=== PATIENT | male | born 1955 | race Two or more races ===

== ENCOUNTER 2019-10-16 12:08 | Emergency (ER) | payer MEDICARE ==
[~2019-10-16] VITALS: Ht 185.4 cm; Wt 92.5 kg
[2019-10-16 12:51] LABS: BASO # 0.1 x10^3/uL (0.0-0.2); BASO % 1 % (0-3); EOS # 0.2 x10^3/uL (0.0-0.7); EOS % 2 % (0-3); HEMATOCRIT 35.4 % (39.0-53.0); HEMOGLOBIN 11.9 g/dL (13.0-17.5); LYMPH # 1.2 x10^3/uL (1.0-4.8); LYMPH % 15 % (24-48); MEAN CORPUSCULAR HEMOGLOBIN 30 pg (25-35); MEAN CORPUSCULAR HGB CONC 34 g/dL (31-37); MEAN CORPUSCULAR VOLUME 88 fL (79-100); MONO # 0.5 x10^3/uL (0.0-1.1); MONO % 6 % (0-9); NEUT # 6.1 x10^3/uL (1.8-7.7); NEUT % 76 % (31-73); PLATELET COUNT 164 x10^3/uL (140-400); RED BLOOD COUNT 4.02 x10^6/uL (4.30-5.70); RED CELL DISTRIBUTION WIDTH 14.5 % (11.5-14.5)
[2019-10-16 12:55] LABS: BILIRUBIN,URINE NEGATIVE (NEG); COLOR,URINE YELLOW; NITRITE,URINE NEGATIVE (NEG); PROTEIN,URINE >=300 mg/dL (NEG-TRACE); UROBILINOGEN,URINE 0.2 mg/dL (0.2 mg/dL)
[2019-10-16 13:01] LABS: CLARITY,URINE CLEAR
[2019-10-16 13:02] LABS: SQUAMOUS EPITHELIAL CELL,UR FEW /LPF
[2019-10-16 13:03] LABS: BACTERIA,URINE FEW /HPF (0-FEW); GRANULAR CASTS,URINE OCCASIONAL /HPF; HYALINE CASTS, URINE FEW /HPF
--- NOTE | 2019-10-16 13:03 | RAD ---
EXAM: CHEST 1 VIEW History: Syncope COMPARISON: None available. TECHNIQUE: Single portable radiograph of the chest FINDINGS: The cardiac silhouette is unremarkable. The lungs are clear bilaterally. The costophrenic sulci are clear and well demarcated. IMPRESSION: No radiographic evidence of an acute cardiopulmonary process. Electronically signed by: Evangelista Toney MD (10/16/2019 1:00 PM) [facility]
[2019-10-16 13:07] LABS: CALCIUM 8.4 mg/dL (8.5-10.1); GFR 21.3; POTASSIUM 3.7 mmol/L (3.5-5.1)
--- NOTE | 2019-10-16 13:10 | RAD ---
EXAM: Head CT without contrast. HISTORY: Syncope. TECHNIQUE: Computed tomographic images of the head were obtained without contrast. *One or more of the following individualized dose reduction techniques were utilized for this examination: 1. Automated exposure control. 2. Adjustment of the mA and/or kV according to patient size. 3. Use of iterative reconstruction technique. COMPARISON: None. FINDINGS: There is no acute or subacute extra-axial or intraparenchymal hemorrhage. There is no mass effect or midline shift. There is no hydrocephalus. There are areas of decreased attenuation within the cerebral white matter, nonspecific and likely related to chronic small vessel disease. The visualized portions of the orbits, paranasal sinuses and mastoid air cells are unremarkable. No suspicious calvarial lesion is seen. There is increased soft tissue density within the right parietal scalp, possibly due to scarring or contusion. IMPRESSION: No acute intracranial finding. Note is made that MRI is more sensitive for acute infarction. There may be a small left parietal scalp contusion or scarring. Correlate for recent injury. Electronically signed by: Tami Christensen MD (10/16/2019 1:07 PM) [facility]
[2019-10-16 13:12] LABS: ALBUMIN 2.7 g/dL (3.4-5.0); ALBUMIN/GLOBULIN RATIO 0.8 (1.0-1.7); MAGNESIUM 1.9 mg/dL (1.8-2.4); TOTAL BILIRUBIN 0.7 mg/dL (0.2-1.0); TOTAL PROTEIN 6.3 g/dL (6.4-8.2)
--- NOTE | 2019-10-16 14:39 | PHYS DOC ---
Past Medical History Past Medical History: Diabetes-Type II, Hypertension, [place], Other Additional Past Medical Histor: CHRONIC BACK PAIN Alcohol Use: None Drug Use: None Adult General Chief Complaint Chief Complaint: NEAR SYNCOPE [facility] HPI Patient is a 64 year old male patient with history of hypertension, diabetes mellitus, coronary artery disease, renal insufficiency, chronic back pain who presents via EMS with complaining of near syncope. Patient states he was sitting at lunch table and felt cold and had hot flash and does not remember anything after that. Patient's son states he was sitting and had extensive cold sweat and became confused without loss of consciousness last about 45-60 minutes. Patient's son fed him and called 911. Patient became more awake at arrival of EMS and had blood sugar of 71. Patient is alert and oriented to ER and had blood sugar of 85 and complaining of mild weakness without focal neuro deficit, chest pain, shortness of breath, history of syncope. Review of Systems Review of Systems Constitutional: Denies fever or chills [] Eyes: Denies change in visual acuity, redness, or eye pain [] HENT: Denies nasal congestion or sore throat [] Respiratory: Denies cough or shortness of breath [] Cardiovascular: No additional information not addressed in HPI [] GI: Denies abdominal pain, nausea, vomiting, bloody stools or diarrhea [] : Denies dysuria or hematuria [] Musculoskeletal: Denies back pain or joint pain [] Integument: Denies rash or skin lesions [] Neurologic: Denies headache, focal weakness or sensory changes [] Endocrine: Denies polyuria or polydipsia [] All other systems were reviewed and found to be within normal limits, except as documented in this note. Allergies Allergies Allergies Coded Allergies Type Severity Reaction Last Updated Verified No Known Drug Allergies 10/16/19 No Physical Exam Physical Exam Constitutional: Well developed, well nourished, mild distress, non-toxic appearance. [] HENT: Normocephalic, atraumatic. Eyes: PERRLA, EOMI, conjunctiva normal, no discharge. [] Neck: Normal range of motion, no tenderness, supple, no stridor. [] Cardiovascular:Heart rate regular rhythm, no murmur [] Lungs & Thorax: Bilateral breath sounds clear to auscultation [] Abdomen: Bowel sounds normal, soft, no tenderness, no masses, no pulsatile masses. [] Skin: Warm, dry, no erythema, no rash. [] Back: No tenderness, no CVA tenderness. [] Extremities: No tenderness, no cyanosis, no clubbing, ROM intact, no edema. [] Neurologic: Alert and oriented X 3, no focal deficits noted. [] Psychologic: Affect normal, judgement normal, mood normal. [] Current Patient Data Vital Signs Vital Signs Date Time Temp Pulse Resp B/P (MAP) Pulse Ox O2 Delivery O2 Flow Rate FiO2 10/16/19 12:15 97.3 54 20 135/62 (86) Room Air 97.0 97.3 Lab Values Laboratory Tests Test 10/16/19 12:20 10/16/19 12:45 10/16/19 12:48 Glucose (Fingerstick) 85 mg/dL (70-99) Urine Collection Type Unknown Urine Color Yellow Urine Clarity Clear Urine pH 5.0 Urine Specific [place] 1.020 Urine Protein >=300 mg/dL (NEG-TRACE) Urine Glucose (UA) 100 mg/dL (NEG) Urine Ketones (Stick) Negative mg/dL (NEG) Urine Blood Small (NEG) Urine Nitrite Negative (NEG) Urine Bilirubin Negative (NEG) Urine Urobilinogen Dipstick 0.2 mg/dL (0.2 mg/dL) Urine Leukocyte Esterase Negative (NEG) Urine RBC 1-2 /HPF (0-2) Urine WBC 1-4 /HPF (0-4) Urine Squamous Epithelial Cells Few /LPF Urine Bacteria Few /HPF (0-FEW) Urine Hyaline Casts Few /HPF Urine Granular Casts Occasional /HPF Urine Mucus Slight /LPF White Blood Count 8.0 x10^3/uL (4.0-11.0) Red Blood Count 4.02 x10^6/uL (4.30-5.70) L Hemoglobin 11.9 g/dL (13.0-17.5) L Hematocrit 35.4 % (39.0-53.0) L Mean Corpuscular Volume 88 fL (79-100) Mean Corpuscular Hemoglobin 30 pg (25-35) Mean Corpuscular Hemoglobin Concent 34 g/dL (31-37) Red Cell Distribution Width 14.5 % (11.5-14.5) Platelet Count 164 x10^3/uL (140-400) Neutrophils (%) (Auto) 76 % (31-73) H Lymphocytes (%) (Auto) 15 % (24-48) L Monocytes (%) (Auto) 6 % (0-9) Eosinophils (%) (Auto) 2 % (0-3) Basophils (%) (Auto) 1 % (0-3) Neutrophils # (Auto) 6.1 x10^3/uL (1.8-7.7) Lymphocytes # (Auto) 1.2 x10^3/uL (1.0-4.8) Monocytes # (Auto) 0.5 x10^3/uL (0.0-1.1) Eosinophils # (Auto) 0.2 x10^3/uL (0.0-0.7) Basophils # (Auto) 0.1 x10^3/uL (0.0-0.2) Prothrombin Time 14.0 SEC (11.7-14.0) Prothrombin Time INR 1.1 (0.8-1.1) Sodium Level 141 mmol/L (136-145) Potassium Level 3.7 mmol/L (3.5-5.1) Chloride Level 107 mmol/L (98-107) Carbon Dioxide Level 25 mmol/L (21-32) Anion Gap 9 (6-14) Blood Urea Nitrogen 31 mg/dL (8-26) H Creatinine 3.0 mg/dL (0.7-1.3) H Estimated GFR (Cockcroft-Gault) 21.3 BUN/Creatinine Ratio 10 (6-20) Glucose Level 110 mg/dL (70-99) H Calcium Level 8.4 mg/dL (8.5-10.1) L Magnesium Level 1.9 mg/dL (1.8-2.4) Total Bilirubin 0.7 mg/dL (0.2-1.0) Aspartate Amino Transferase (AST) 14 U/L (15-37) L Alanine Aminotransferase (ALT) 14 U/L (16-63) L Alkaline Phosphatase 143 U/L (46-116) H Creatine Kinase 129 U/L (39-308) Troponin I Quantitative < 0.017 ng/mL (0.000-0.055) XG-Rnv-T-Type Natriuretic Peptide 1008 pg/mL (0-124) H Total Protein 6.3 g/dL (6.4-8.2) L Albumin 2.7 g/dL (3.4-5.0) L Albumin/Globulin Ratio 0.8 (1.0-1.7) L Laboratory Tests 10/16/19 12:48 Laboratory Tests 10/16/19 12:48 EKG EKG EKG interpreted by me. EKG at 12:30 showed sinus bradycardia at rate of 52, normal AL and QT intervals, no acute ST and T-wave elevation. Radiology/Procedures Radiology/Procedures [][place] [address] IMAGING REPORT Signed PATIENT: LITA HATCH ACCOUNT: [id number] : 1955 LOCATION: ER AGE: 64 SEX: M EXAM STATUS: PRE ER ORD. PHYSICIAN: THOM ROMERO MD REASON: syncope PROCEDURE: PORTABLE CHEST 1V EXAM: CHEST 1 VIEW History: Syncope COMPARISON: None available. TECHNIQUE: Single portable radiograph of the chest FINDINGS: The cardiac silhouette is unremarkable. The lungs are clear bilaterally. The costophrenic sulci are clear and well demarcated. IMPRESSION: No radiographic evidence of an acute cardiopulmonary process. Electronically signed by: Evangelista Tonye MD (10/16/2019 1:00 PM) [facility] DICTATED and SIGNED BY: EVANGELISTA TONEY MD DATE: 10/16/[address] [place] [id number] IMAGING REPORT Signed PATIENT: LITA HATCH ACCOUNT: [id number] : 1955 LOCATION: ER AGE: 64 SEX: M EXAM STATUS: PRE ER ORD. PHYSICIAN: THOM ROMERO MD REASON: syncope PROCEDURE: CT HEAD WO CONTRAST EXAM: Head CT without contrast. HISTORY: Syncope. TECHNIQUE: Computed tomographic images of the head were obtained without contrast. *One or more of the following individualized dose reduction techniques were utilized for this examination: 1. Automated exposure control. 2. Adjustment of the mA and/or kV according to patient size. 3. Use of iterative reconstruction technique. COMPARISON: None. FINDINGS: There is no acute or subacute extra-axial or intraparenchymal hemorrhage. There is no mass effect or midline shift. There is no hydrocephalus. There are areas of decreased attenuation within the cerebral white matter, nonspecific and likely related to chronic small vessel disease. The visualized portions of the orbits, paranasal sinuses and mastoid air cells are unremarkable. No suspicious calvarial lesion is seen. There is increased soft tissue density within the right parietal scalp, possibly due to scarring or contusion. IMPRESSION: No acute intracranial finding. Note is made that MRI is more sensitive for acute infarction. There may be a small left parietal scalp contusion or scarring. Correlate for recent injury. Electronically signed by: Tami Banks MD (10/16/2019 1:07 PM) [facility] DICTATED and SIGNED BY: TAMI BANKS MD DATE: 10/16/19 2587 Course & Med Decision Making Course & Med Decision Making Pertinent Labs and Imaging studies reviewed. (See chart for details) Evaluation of patient in ER showed 64-year-old male patient with history of diabetes mellitus brought in by EMS with near syncope episode. Patient was alert and oriented in ER. According to patient's son story, mostly he had episodes of hypoglycemia that improved with oral intake. Patient had blood sugar of 85 and 110 whyle he was in ER. Patient had elevation of BUN/creatinine without having previous blood testing here to compare. Patient states he has chronic renal insufficiency. I offered hospitalization but patient wanted to go home and follow with his primary care physician. Patient was advised to return at any time if not feeling good and checked his blood sugar frequently today. Dragon Disclaimer Dragon Disclaimer This electronic medical record was generated, in whole or in part, using a voice recognition dictation system. Departure Departure Impression: Primary Impression: Near syncope Additional Impressions: Renal insufficiency Anemia Hypoalbuminemia Noncompliance by refusing service Disposition: 07 AGAINST MEDICAL ADVICE (at 1439) Condition: IMPROVED Referrals: NON,STAFF (PCP) Patient Instructions: Hypoglycemia (Low Blood Sugar), Syncope Additional Instructions: Drink plenty of liquids Follow-up with your primary care physician in 2-3 days Return to ER if not getting better Check your blood sugar frequently today Thank you for visiting [facility]. We appreciate you trusting us with your care. If any additional problems come up don't hesitate to return to visit us. Please follow up with your primary care provider so they can plan additional care if needed and know about the problem that you had. If symptoms worsen come back to the Emergency Department. Any concerning symptoms that start such as chest pain, shortness of air, weakness or numbness on one side of the body, running high fevers or any other concerning symptoms return to the ER. Problem Qualifiers Additional Impressions: Anemia Anemia type: unspecified type Qualified Codes: D64.9 - Anemia, unspecified THOM ROMERO MD Oct 16, 2019 14:39
[2019-10-16 15:15] VITALS: BP 131/60
--- NOTE | 2019-10-16 16:25 | EKG ---
[facility] [address] [place] [address] Test Date: 2019-10-16 Test Time: 12:13:50 Pat Name: LITA HATCH Department: Room: Gender: M Outside Salesperson: : 1955 Requested By: THOM ROMERO Order Number: [id number] Reading MD: Measurements Intervals [place] Rate: 52 P: 32 MT: 184 QRS: 44 QRSD: 110 T: -6 QT: 488 QTc: 456 Interpretive Statements SINUS RHYTHM QRS(T) CONTOUR ABNORMALITY CONSISTENT WITH INFERIOR INFARCT PROBABLY OLD ABNORMAL ECG RI6.01 No previous ECG available for comparison
== END 2019-10-16 15:19 | disposition left against medical advice (07) ==
LOC: ER 12:08
DX: R55 Syncope and collapse (principal); D64.9 Anemia, unspecified; E88.09 Other disorders of plasma-protein metabolism, not elsewhere classified; Z91.19 Patient's noncompliance with other medical treatment and regimen; I12.9 Hypertensive chronic kidney disease with stage 1 through stage 4 chronic kidney disease, or unspecified chronic kidney disease; E11.22 Type 2 diabetes mellitus with diabetic chronic kidney disease; N18.9 Chronic kidney disease, unspecified; G89.29 Other chronic pain
CPT/HCPCS: 36415; 70450; 71045; 80053; 81001; 82550; 82962; 83735; 83880; 84484; 85025; 85610; 93005; 99285-25

== ENCOUNTER 2021-06-20 21:40 | Inpatient (IN) | payer MEDICARE ==
[~2021-06-20] VITALS: Ht 185.4 cm; Wt 83.1 kg
[~2021-06-20 21:40] MED LIST: AMLO-186 PO; AMLO-187 PO; ASPI-886 PO; CALC0.25 PO; CLOP75TA PO; FAMO40TA57 PO; FURO80TA72 PO; GABA600T7 PO; INSU100C4 SQ; INSU100V37 SQ; LIPITOR80 MG PO; LISI10TA16 PO; METO50TA4 PO; OXYC5CAP PO; PRED20TA PO
--- NOTE | 2021-06-21 05:52 | ED.ADGEN ---
Past Medical History Past Medical History: Diabetes-Type II, Hypertension, PA, Renal Failure, Other Additional Past Medical Histor: CHRONIC BACK PAIN, PVD with stents, bladder CA Past Surgical History: Other Additional Past Surgical Histo: PVD stents, RLE amputation, L toe amputation Smoking Status: Current Every Day Smoker Alcohol Use: None Drug Use: None General Adult EDM: Chief Complaint: OTHER COMPLAINTS HPI: HPI: Patient is a 66 year old male coming in via EMS after his right-sided tunneled dialysis catheter came out while he was doing dishes. Had bleeding at the time because he takes Plavix, bleeding controlled on arrival with a bandage placed by EMS. No other complaints. Patient states he gets dialysis Monday and has had this dialysis catheter for about 2.5 months. Patient has a plan to get a fistula within the next month. Patient states that it was sutured in but his home health nurse recently remove the sutures that he is unsure why. Review of Systems: Review of Systems: All other systems within normal limits except for as noted in the HPI Allergies: Allergies: Allergies Coded Allergies Type Severity Reaction Last Updated Verified No Known Drug Allergies 10/16/19 No Physical Exam: PE: Constitutional: Well developed, well nourished, no acute distress, non-toxic appearance. [] HENT: Normocephalic, atraumatic, bilateral external ears normal, nose normal. [] Eyes: PERRLA, conjunctiva normal, no discharge. [] Neck: No rigidity, supple, no stridor. [] Cardiovascular: Regular rate and rhythm, brisk cap refill [] Lungs & Thorax: Non labored symmetric respirations, no tachypnea or respiratory distress [] Abdomen: Soft, nondistended. Skin: Warm, dry, no erythema, no rash. Round wound on right chest, no active bleeding or oozing. [] Back: Unremarkable Extremities: No deformities, range of motion grossly intact, no lower extremity edema [] Neurologic: Alert and oriented X 3, no focal deficits noted. [] Psychologic: Affect normal, judgement normal, mood normal. [] Constitutional: Well developed, well nourished, no acute distress, non-toxic appearance HENT: Normocephalic, atraumatic Eyes: Conjunctiva normal, no discharge Neck: Normal range of motion, no tenderness, supple Lungs & Thorax: No respiratory distress, equal chest rise and fall, right chest wall dressing noted covering area of extracted HD catheter Abdomen: Soft, no tenderness Skin: Warm, dry, no erythema, no rash Extremities: No tenderness, ROM intact, no edema Neurologic: Alert and oriented X 3, no focal deficits noted Psychologic: Affect normal, judgment normal Current Patient Data: Labs: Laboratory Tests Test 06/21/21 07:20 White Blood Count 6.6 x10^3/uL (4.0-11.0) Red Blood Count 3.55 x10^6/uL (4.30-5.70) L Hemoglobin 11.6 g/dL (13.0-17.5) L Hematocrit 34.8 % (39.0-53.0) L Mean Corpuscular Volume 98 fL (79-100) Mean Corpuscular Hemoglobin 33 pg (25-35) Mean Corpuscular Hemoglobin Concent 33 g/dL (31-37) Red Cell Distribution Width 15.3 % (11.5-14.5) H Platelet Count 219 x10^3/uL (140-400) Neutrophils (%) (Auto) 73 % (31-73) Lymphocytes (%) (Auto) 16 % (24-48) L Monocytes (%) (Auto) 8 % (0-9) Eosinophils (%) (Auto) 3 % (0-3) Basophils (%) (Auto) 1 % (0-3) Neutrophils # (Auto) 4.8 x10^3/uL (1.8-7.7) Lymphocytes # (Auto) 1.0 x10^3/uL (1.0-4.8) Monocytes # (Auto) 0.5 x10^3/uL (0.0-1.1) Eosinophils # (Auto) 0.2 x10^3/uL (0.0-0.7) Basophils # (Auto) 0.1 x10^3/uL (0.0-0.2) Prothrombin Time 13.5 SEC (11.7-14.0) Prothrombin Time INR 1.0 (0.8-1.1) Sodium Level 142 mmol/L (136-145) Potassium Level 4.7 mmol/L (3.5-5.1) Chloride Level 109 mmol/L (98-107) H Carbon Dioxide Level 22 mmol/L (21-32) Anion Gap 11 (6-14) Blood Urea Nitrogen 27 mg/dL (8-26) H Creatinine 5.8 mg/dL (0.7-1.3) H Estimated GFR (Cockcroft-Gault) 9.9 BUN/Creatinine Ratio 5 (6-20) L Glucose Level 144 mg/dL (70-99) H Calcium Level 8.4 mg/dL (8.5-10.1) L Phosphorus Level 4.1 mg/dL (2.6-4.7) Magnesium Level 2.1 mg/dL (1.8-2.4) Total Bilirubin 0.5 mg/dL (0.2-1.0) Aspartate Amino Transferase (AST) 11 U/L (15-37) L Alanine Aminotransferase (ALT) 17 U/L (16-63) Alkaline Phosphatase 124 U/L (46-116) H VP-Hqg-K-Type Natriuretic Peptide 56400 pg/mL (0-124) H Total Protein 6.2 g/dL (6.4-8.2) L Albumin 3.2 g/dL (3.4-5.0) L Albumin/Globulin Ratio 1.1 (1.0-1.7) Laboratory Tests 06/21/21 07:20 Laboratory Tests 06/21/21 07:20 Vital Signs: Vital Signs Date Time Temp Pulse Resp B/P (MAP) Pulse Ox O2 Delivery O2 Flow Rate FiO2 06/21/21 08:21 59 100 06/21/21 05:24 15 166/76 (106) Room Air 06/21/21 03:27 98.0 98.0 EKG: EKG: Sinus rhythm, heart rate 69 bpm, normal axis, no ST elevation or depression, T waves unremarkable [] Heart Score: C/O Chest Pain: N/A Radiology/Procedures: Radiology/Procedures: PROCEDURE: CHEST AP ONLY EXAM: XR CHEST 1V 06/21/2021 5:20 AM CLINICAL INDICATION: Postop dialysis catheter COMPARISON: Chest radiograph 04/01/2021 TECHNIQUE: AP upright view of the chest FINDINGS: A right IJ central venous catheter has been removed. The cardiomediastinal silhouette is normal. Lungs are adequately expanded. Probable mild atelectasis in the lung bases. No pleural effusion or pneumothorax. IMPRESSION: Interval removal of right IJ catheter. No acute abnormality. Electronically signed by: Geri Tucker MD (06/21/2021 6:08 AM) [id number] Course & Med Decision Making: Course & Med Decision Making Pertinent Labs and Imaging studies reviewed. (See chart for details) Pending labs and imaging at shift change 0600- Sign out received from Dr. Gross for patient with accidental extraction of HD catheter. Patient pending laboratory and radiological results. Patient seen and evaluated by myself. CXR stable. Labs reviewed. Patient requiring admission for further evaluation and treatment including replacement of HD catheter and dialysis. Discussed with Dr. Witt (hospitalist) who is in agreement with admission. Discussed case with Dr. Conti (interventional radiology) regarding replacement of HD catheter. Discussed case with Dr. Pierre (nephrology) regarding need for HD upon catheter replacement. Discussed findings and plan with patient, who acknowledges understanding and agreement. Dragon Disclaimer: Dragon Disclaimer: This electronic medical record was generated, in whole or in part, using a voice recognition dictation system. Departure Departure Impression: Primary Impression: Complications, dialysis, catheter, mechanical Additional Impression: ESRD (end stage renal disease) on dialysis Disposition: 09 ADMITTED INPATIENT Admitting Physician: ELEUTERIO Paul) Condition: STABLE Referrals: NO PCP (PCP) Problem Qualifiers Primary Impression: Complications, dialysis, catheter, mechanical Encounter type: initial encounter Qualified Codes: T82.49XA - Other complication of vascular dialysis catheter, initial encounter GERI GROSS MD Jun 21, 2021 05:52 PIETRO MAC DO Jun 21, 2021 08:49
--- NOTE | 2021-06-21 06:11 | RAD ---
EXAM: XR CHEST 1V 06/21/2021 5:20 AM CLINICAL INDICATION: Postop dialysis catheter COMPARISON: Chest radiograph 04/01/2021 TECHNIQUE: AP upright view of the chest FINDINGS: A right IJ central venous catheter has been removed. The cardiomediastinal silhouette is n ormal. Lungs are adequately expanded. Probable mild atelectasis in the lung bases. No pleural effusio n or pneumothorax. IMPRESSION: Interval removal of right IJ catheter. No acute abnormality. Electronically signed by: Geri Tucker MD (06/21/2021 6:08 AM) [id number]
--- NOTE | 2021-06-21 06:47 | EKG ---
[facility] [address] [place] [address] Test Date: 2021-06-21 Test Time: 05:29:05 Pat Name: LITA HATCH Department: Room: Gender: M Order Entry Specialist: : 1955 Requested By: KAROLINA GROSS Order Number: [id number] Reading MD: Measurements Intervals [place] Rate: 69 P: 49 [place]: 160 QRS: 67 QRSD: 108 T: 94 QT: 396 QTc: 426 Interpretive Statements SINUS RHYTHM QRS(T) CONTOUR ABNORMALITY CONSIDER ANTEROSEPTAL MYOCARDIAL DAMAGE CONSIDER INFERIOR MYOCARDIAL DAMAGE POSSIBLY ABNORMAL ECG RI6.02 No previous ECG available for comparison
[2021-06-21 07:51] LABS: BASO # 0.1 x10^3/uL (0.0-0.2); BASO % 1 % (0-3); EOS # 0.2 x10^3/uL (0.0-0.7); EOS % 3 % (0-3); HEMATOCRIT 34.8 % (39.0-53.0); HEMOGLOBIN 11.6 g/dL (13.0-17.5); LYMPH % 16 % (24-48); MEAN CORPUSCULAR HEMOGLOBIN 33 pg (25-35); MEAN CORPUSCULAR HGB CONC 33 g/dL (31-37); MEAN CORPUSCULAR VOLUME 98 fL (79-100); MONO # 0.5 x10^3/uL (0.0-1.1); MONO % 8 % (0-9); NEUT # 4.8 x10^3/uL (1.8-7.7); NEUT % 73 % (31-73); PLATELET COUNT 219 x10^3/uL (140-400); RED BLOOD COUNT 3.55 x10^6/uL (4.30-5.70); RED CELL DISTRIBUTION WIDTH 15.3 % (11.5-14.5); WHITE BLOOD COUNT 6.6 x10^3/uL (4.0-11.0)
[2021-06-21 07:55] LABS: CALCIUM 8.4 mg/dL (8.5-10.1); CREATININE 5.8 mg/dL (0.7-1.3); GFR 9.9; POTASSIUM 4.7 mmol/L (3.5-5.1)
[2021-06-21 08:00] LABS: PROTHROMBIN TIME PATIENT 13.5 SEC (11.7-14.0)
[2021-06-21 08:07] LABS: ALBUMIN 3.2 g/dL (3.4-5.0); ALBUMIN/GLOBULIN RATIO 1.1 (1.0-1.7); MAGNESIUM 2.1 mg/dL (1.8-2.4); PHOSPHORUS 4.1 mg/dL (2.6-4.7); TOTAL BILIRUBIN 0.5 mg/dL (0.2-1.0); TOTAL PROTEIN 6.2 g/dL (6.4-8.2)
--- NOTE | 2021-06-21 11:19 | PDOC1 ---
History and Physical Date of Admission Date of Admission DATE: 06/21/21 TIME: 11:11 Identification/Chief Complaint Chief Complaint Right tunneled dialysis catheter dislodgment Source Source: Chart review, Patient History of Present Illness History of Present Illness Patient 66-year-old male with past medical history ESRD on HD Monday/Monday/Monday, who presents to the ED for evaluation after his right- sided hemodialysis catheter became dislodged while he was doing dishes at home. He reports some initial bleeding that has since ceased. Patient states he had his dialysis catheter for about 2.5 months, with plans to get a fistula within the next month. ER attending discussed with IR, HD catheter will likely be able to be replaced this afternoon. Will admit for further medical management. Past Medical History Past Medical History DM2, hypertension, [place], chronic back pain, PVD, bladder cancer Past Surgical History Past Surgical History Vascular stents, right lower extremity amputation, left toe amputation Family History Family History: Hypertension Social History Smoke: 1 pack per day ALCOHOL: none Drugs: None Current Problem List Problem List Problems Medical Problems: (1) Complications, dialysis, catheter, mechanical Status: Acute (2) ESRD (end stage renal disease) on dialysis Status: Acute Current Medications Current Medications Active Scripts Active Clopidogrel (Clopidogrel Bisulfate) 75 Mg Tablet 75 Mg PO DAILYWBKFT 30 Days Prednisone 20 Mg Tablet 40 Mg PO DAILY 5 Days Aspirin Ec (Aspirin) 81 Mg Tablet.dr 81 Mg PO DAILYWBKFT 30 Days Lisinopril 10 Mg Tablet 10 Mg PO DAILY 30 Days Toprol XL (Metoprolol Succinate) 50 Mg Tab.er.24h 50 Mg PO DAILY 30 Days Amlodipine Besylate 10 Mg Tablet 10 Mg PO DAILY 30 Days Reported Calcitriol 0.25 Mcg Capsule 1 Cap PO DAILY Lipitor (Atorvastatin Calcium) 80 Mg Tablet 80 Mg PO HS Gabapentin 600 Mg Tablet 300 Mg PO TID Pepcid (Famotidine) 40 Mg Tablet 40 Mg PO HS Tresiba (Insulin Degludec) 100 Unit/1 Ml Vial 40 Unit SQ HS Novolog (Insulin Aspart) 100 Unit/1 Ml Cartridge 10 Unit SQ TIDWMEALHC Oxycodone Hcl 5 Mg Capsule 10 Mg PO PRN Q6HRS PRN Oxycodone Hcl 5 Mg Capsule 5 Mg PO PRN Q6HRS PRN Allergies Allergies: Coded Allergies: No Known Drug Allergies (Unverified , 10/16/19) ROS Review of System GENERAL: No history of weight change, weakness or fevers. SKIN: No bruising, hair changes or rashes. EYES: No blurred, double or loss of vision. NOSE AND THROAT: No history of nosebleeds, hoarseness or sore throat. HEART: Denies chest pain, denies palpitations. LUNGS: Denies cough, hemoptysis, wheezing or shortness of breath. GASTROINTESTINAL: Denies nausea, vomiting, abdominal pain. GENITOURINARY: Denies dysuria, frequency, urgency, hematuria. NEUROLOGIC: Denies history of numbness, tingling, tremor or weakness. PSYCHIATRIC: Denies anxiety, denies depression. ENDOCRINE: No history of heat or cold intolerance, polyuria or polydipsia. EXTREMITIES: Right hemodialysis catheter dislodgment. Denies muscle weakness, joint pain, pain on walking or stiffness. Physical Exam Physical Exam General: Alert, Oriented X3, Cooperative, No acute distress HEENT: PERRLA, EOMI Lungs: Bibasilar crackles, normal air movement Heart: RRR, no murmurs Cardiovascular: S1, S2 Abdomen: Normal bowel sounds, Soft, No tenderness Extremities: Right AKA. No clubbing, No cyanosis Skin: No rashes, No significant lesion Neuro: Normal speech, Normal tone, Sensation intact Psych/Mental Status: Mental status NL, Mood NL Vitals Vitals Vital Signs Date Time Temp Pulse Resp B/P (MAP) Pulse Ox O2 Delivery O2 Flow Rate FiO2 06/21/21 11:05 72 166/76 (106) 99 06/21/21 05:24 15 Room Air 06/21/21 03:27 98.0 98.0 Labs Labs Laboratory Tests Test 06/21/21 07:20 White Blood Count 6.6 x10^3/uL (4.0-11.0) Red Blood Count 3.55 x10^6/uL (4.30-5.70) Hemoglobin 11.6 g/dL (13.0-17.5) Hematocrit 34.8 % (39.0-53.0) Mean Corpuscular Volume 98 fL (79-100) Mean Corpuscular Hemoglobin 33 pg (25-35) Mean Corpuscular Hemoglobin Concent 33 g/dL (31-37) Red Cell Distribution Width 15.3 % (11.5-14.5) Platelet Count 219 x10^3/uL (140-400) Neutrophils (%) (Auto) 73 % (31-73) Lymphocytes (%) (Auto) 16 % (24-48) Monocytes (%) (Auto) 8 % (0-9) Eosinophils (%) (Auto) 3 % (0-3) Basophils (%) (Auto) 1 % (0-3) Neutrophils # (Auto) 4.8 x10^3/uL (1.8-7.7) Lymphocytes # (Auto) 1.0 x10^3/uL (1.0-4.8) Monocytes # (Auto) 0.5 x10^3/uL (0.0-1.1) Eosinophils # (Auto) 0.2 x10^3/uL (0.0-0.7) Basophils # (Auto) 0.1 x10^3/uL (0.0-0.2) Prothrombin Time 13.5 SEC (11.7-14.0) Prothromb Time International Ratio 1.0 (0.8-1.1) Sodium Level 142 mmol/L (136-145) Potassium Level 4.7 mmol/L (3.5-5.1) Chloride Level 109 mmol/L (98-107) Carbon Dioxide Level 22 mmol/L (21-32) Anion Gap 11 (6-14) Blood Urea Nitrogen 27 mg/dL (8-26) Creatinine 5.8 mg/dL (0.7-1.3) Estimated GFR (Cockcroft-Gault) 9.9 BUN/Creatinine Ratio 5 (6-20) Glucose Level 144 mg/dL (70-99) Calcium Level 8.4 mg/dL (8.5-10.1) Phosphorus Level 4.1 mg/dL (2.6-4.7) Magnesium Level 2.1 mg/dL (1.8-2.4) Total Bilirubin 0.5 mg/dL (0.2-1.0) Aspartate Amino Transf (AST/SGOT) 11 U/L (15-37) Alanine Aminotransferase (ALT/SGPT) 17 U/L (16-63) Alkaline Phosphatase 124 U/L (46-116) NF-Xtx-S-Type Natriuretic Peptide 65805 pg/mL (0-124) Total Protein 6.2 g/dL (6.4-8.2) Albumin 3.2 g/dL (3.4-5.0) Albumin/Globulin Ratio 1.1 (1.0-1.7) Laboratory Tests Test 06/21/21 07:20 White Blood Count 6.6 x10^3/uL (4.0-11.0) Red Blood Count 3.55 x10^6/uL (4.30-5.70) Hemoglobin 11.6 g/dL (13.0-17.5) Hematocrit 34.8 % (39.0-53.0) Mean Corpuscular Volume 98 fL (79-100) Mean Corpuscular Hemoglobin 33 pg (25-35) Mean Corpuscular Hemoglobin Concent 33 g/dL (31-37) Red Cell Distribution Width 15.3 % (11.5-14.5) Platelet Count 219 x10^3/uL (140-400) Neutrophils (%) (Auto) 73 % (31-73) Lymphocytes (%) (Auto) 16 % (24-48) Monocytes (%) (Auto) 8 % (0-9) Eosinophils (%) (Auto) 3 % (0-3) Basophils (%) (Auto) 1 % (0-3) Neutrophils # (Auto) 4.8 x10^3/uL (1.8-7.7) Lymphocytes # (Auto) 1.0 x10^3/uL (1.0-4.8) Monocytes # (Auto) 0.5 x10^3/uL (0.0-1.1) Eosinophils # (Auto) 0.2 x10^3/uL (0.0-0.7) Basophils # (Auto) 0.1 x10^3/uL (0.0-0.2) Prothrombin Time 13.5 SEC (11.7-14.0) Prothromb Time International Ratio 1.0 (0.8-1.1) Sodium Level 142 mmol/L (136-145) Potassium Level 4.7 mmol/L (3.5-5.1) Chloride Level 109 mmol/L (98-107) Carbon Dioxide Level 22 mmol/L (21-32) Anion Gap 11 (6-14) Blood Urea Nitrogen 27 mg/dL (8-26) Creatinine 5.8 mg/dL (0.7-1.3) Estimated GFR (Cockcroft-Gault) 9.9 BUN/Creatinine Ratio 5 (6-20) Glucose Level 144 mg/dL (70-99) Calcium Level 8.4 mg/dL (8.5-10.1) Phosphorus Level 4.1 mg/dL (2.6-4.7) Magnesium Level 2.1 mg/dL (1.8-2.4) Total Bilirubin 0.5 mg/dL (0.2-1.0) Aspartate Amino Transf (AST/SGOT) 11 U/L (15-37) Alanine Aminotransferase (ALT/SGPT) 17 U/L (16-63) Alkaline Phosphatase 124 U/L (46-116) UQ-Bus-I-Type Natriuretic Peptide 33485 pg/mL (0-124) Total Protein 6.2 g/dL (6.4-8.2) Albumin 3.2 g/dL (3.4-5.0) Albumin/Globulin Ratio 1.1 (1.0-1.7) VTE Prophylaxis Ordered VTE Prophylaxis Devices: Yes VTE Pharmacological Prophylaxi: Yes Assessment/Plan Assessment/Plan ESRD on HD Monday/Monday/Monday Dislodged HD catheter Missed hemodialysis Normocytic anemia Plan: Consultation placed to IR Consultation placed to nephrology Plan to hopefully replace catheter and resume regular HD schedule today HD catheter able to be replaced he may also discharged home today or tomorrow Resume home medications FEN - Renal diet PPX - Heparin FULL CODE Dispo - inpatient for above Patient names a surrogate decision-maker is his daughter (Linda Price) Justifications for Admission Other Justification Respiratory failure with hypoxia, NSTEMI, acute on CKD, PUI MONIQUE MOBLEY MD Jun 21, 2021 11:19
[2021-06-21] MEDS ORDERED: ACETAMINOPHEN 325 MG TABLET. PO PRN (11:30)
[2021-06-21] MEDS ORDERED: MAG HYDROX/ALUMINUM HYD/SIMETH 30 ML ORAL.SUSP PO PRN (11:30)
[2021-06-21] MEDS ORDERED: CALCIUM CARBONATE 500 MG TAB.CHEW PO PRN (11:30)
[2021-06-21] MEDS ORDERED: ZOLPIDEM 5 MG TABLET. PO PRN (11:30)
[2021-06-21] MEDS ORDERED: oxyCODONE IR 5 MG TABLET PO PRN ×2 (11:30)
[2021-06-21] MEDS ORDERED: hydrALAZINE 20 MG/ML VIAL. IVP PRN (11:30)
[2021-06-21] MEDS ORDERED: MAGNESIUM HYDROXIDE 2,400 MG/30 ML ORAL.SUSP. PO PRN (11:30)
[2021-06-21] MEDS ORDERED: ONDANSETRON PF 4 MG/2 ML VIAL. IVP PRN (11:30)
[2021-06-21] MEDS: predniSONE 20 MG TABLET PO SCH (12:00)
[2021-06-21] MEDS: INSULIN LISPRO 300 UNITS/3 ML VIAL. SQ SCH ×3 (12:00→22:50)
[2021-06-21] MEDS: LISINOPRIL 10 MG TABLET PO SCH (12:00)
[2021-06-21] MEDS: CLOPIDOGREL BISULFATE 75 MG TABLET PO SCH (12:00)
[2021-06-21] MEDS: ASPIRIN ENTERIC COATED 81 MG TABLET.DR. PO SCH (12:00)
[2021-06-21] MEDS: METOPROLOL SUCC 24HR ER 50 MG TAB.ER.24H. PO SCH (12:00)
[2021-06-21] MEDS: HEPARIN for SUB-Q USE 5,000 UNIT/ML VIAL. SQ SCH ×2 (14:00→22:48)
[2021-06-21] MEDS: GABAPENTIN 300 MG CAPSULE. PO SCH ×2 (14:00→22:39)
[2021-06-21] MEDS ORDERED: LIDOCAINE 1%/EPI 1:100,000 20 ML VIAL. ONE (14:17)
[2021-06-21] MEDS ORDERED: fentaNYL PF VIAL 100 MCG/2 ML VIAL ONE (15:12)
[2021-06-21] MEDS ORDERED: MIDAZOLAM HCL/PF 2 MG/2 ML VIAL. ONE (15:12)
[2021-06-21] MEDS ORDERED: LIDOCAINE 1%/EPI 1:100,000 20 ML VIAL. INJ ONE (15:30)
[2021-06-21] MEDS ORDERED: fentaNYL PF VIAL 100 MCG/2 ML VIAL IV ONE (15:30)
[2021-06-21] MEDS ORDERED: MIDAZOLAM HCL/PF 2 MG/2 ML VIAL. IV ONE (15:30)
[2021-06-21] MEDS ORDERED: IOHEXOL 240 MG/ML 50ML VIAL. ONE (15:32)
[2021-06-21] MEDS ORDERED: IOHEXOL 240 MG/ML 50ML VIAL. IJ ONE (15:45)
[2021-06-21] MEDS ORDERED: CONTRAST GIVEN. MC PRN (15:45)
--- NOTE | 2021-06-21 15:48 | NUR ---
Tunneled dialysis cath in R EJ Addendum: 06/21/21 at 1548 by TALIA FALCON RN Amended: Links added.
--- NOTE | 2021-06-21 15:55 | PDOC2 ---
CONSULT Date of Consult Date of Consult DATE: 06/21/21 TIME: 15:49 Reason for Consult Reason for Consult: ESRD Identification/Chief Complaint Chief Complaint "Dialysis catheter fell off" Source Source: Chart review, Patient History of Present Illness Reason for Visit: Patient 66-year-old male with past medical history ESRD on HD Mo /Monday/Monday, who presents to the ED for evaluation after his right- sided hemodialysis catheter became dislodged while he was doing dishes at home. He reports some initial bleeding that has since ceased. Patient states he had his dialysis catheter for about 2.5 months, with plans to get a fistula within the next month. Denies any N/V/D. No CP or SOB. No F/C Past Medical History Past Medical History DM2, hypertension, [place], chronic back pain, PVD, bladder cancer Past Surgical History Past Surgical History Vascular stents, right lower extremity amputation, left toe amputation Family History Family History: Hypertension Social History Social History Smoke: 1 pack per day ALCOHOL: none Drugs: None 1 pack per day ALCOHOL: none Drugs: None Current Problem List Problem List Problems Medical Problems: (1) Complications, dialysis, catheter, mechanical Status: Acute (2) ESRD (end stage renal disease) on dialysis Status: Acute Current Medications Current Medications Current Medications Amlodipine Besylate (Norvasc) 10 mg DAILY PO ; Start 06/21/21 at 12:00 Aspirin (Ecotrin) 81 mg DAILYWBKFT PO ; Start 06/21/21 at 12:00 Calcitriol (Rocaltrol) 0.25 mcg DAILY PO ; Start 06/22/21 at 09:00 Clopidogrel Bisulfate (Plavix) 75 mg DAILYWBKFT PO ; Start 06/21/21 at 12:00 Lisinopril (Prinivil) 10 mg DAILY PO ; Start 06/21/21 at 12:00 Metoprolol Succinate (Toprol Xl) 50 mg DAILY PO ; Start 06/21/21 at 12:00 Prednisone (Prednisone) 40 mg DAILY PO ; Start 06/21/21 at 12:00 Atorvastatin Calcium (Lipitor) 80 mg QHS PO ; Start 06/21/21 at 21:00 Famotidine (Pepcid) 40 mg HS PO ; Start 06/21/21 at 21:00 Gabapentin (Neurontin) 300 mg TID PO ; Start 06/21/21 at 14:00 Insulin Human Lispro (HumaLOG) 10 units TIDWMEALHC SQ ; Start 06/21/21 at 12:00 Insulin Glargine (Lantus Syringe) 40 unit QHS SQ ; Start 06/21/21 at 21:00 Oxycodone HCl (Roxicodone) 5 mg PRN Q6HRS PRN PO MILD-MODERATE PAIN; Start 06/21/21 at 11:30 Oxycodone HCl (Roxicodone) 10 mg PRN Q6HRS PRN PO MOD-SEVERE PAIN; Start 06/21/21 at 11:30 Ondansetron HCl (Zofran) 4 mg PRN Q6HRS PRN IVP NAUSEA/VOMITING; Start 06/21/21 at 11:30 Al Hydroxide/Mg Hydroxide (Mylanta Plus Xs) 30 ml PRN Q3HRS PRN PO HEARTBURN / GAS; Start 06/21/21 at 11:30 Calcium Carbonate/ Glycine (Tums) 500 mg PRN Q3HRS PRN PO UPSET STOMACH; Start 06/21/21 at 11:30 Zolpidem Tartrate (Ambien) 5 mg PRN QHS PRN PO INSOMNIA, MAY REPEAT IN 1HR; Start 06/21/21 at 11:30 Acetaminophen (Tylenol) 650 mg PRN Q6HRS PRN PO Headaches, Temp > 101.5F; Start 06/21/21 at 11:30 Magnesium Hydroxide (Milk Of Magnesia) 2,400 mg PRN Q12HR PRN PO CONSTIPATION; Start 06/21/21 at 11:30 Heparin Sodium (Porcine) (Heparin Sodium) 5,000 unit Q8HRS SQ ; Start 06/21/21 at 14:00 Hydralazine HCl (Apresoline Inj) 10 mg PRN Q4HRS PRN IVP HYPERTENSION; Start 06/21/21 at 11:30 Lidocaine/ Epinephrine (LIDOCAINE 1%-EPI 1:100,000 Multi-Dose) 20 ml STK-MED ONCE .ROUTE ; Start 06/21/21 at 14:17; Stop 06/21/21 at 14:17; Status DC Midazolam HCl (Versed) 2 mg STK-MED ONCE .ROUTE ; Start 06/21/21 at 15:12; Stop 06/21/21 at 15:12; Status DC Fentanyl Citrate (Fentanyl 2ml Vial) 100 mcg STK-MED ONCE .ROUTE ; Start 06/21/21 at 15:12; Stop 06/21/21 at 15:12; Status DC Cefazolin Sodium/ Dextrose 50 ml @ As Directed STK-MED ONCE IV ; Start 06/21/21 at 15:12; Stop 06/21/21 at 15:13; Status DC Midazolam HCl (Versed) 2 mg 1X ONCE IV ; Start 06/21/21 at 15:30; Stop 06/21/21 at 15:31; Status DC Fentanyl Citrate (Fentanyl 2ml Vial) 50 mcg 1X ONCE IV ; Start 06/21/21 at 15:30; Stop 06/21/21 at 15:31; Status DC Lidocaine/ Epinephrine (LIDOCAINE 1%-EPI 1:100,000 Multi-Dose) 20 ml 1X ONCE INJ ; Start 06/21/21 at 15:30; Stop 06/21/21 at 15:31; Status DC Cefazolin Sodium/ Dextrose 50 ml @ 100 mls/hr 1X ONCE IV ; Start 06/21/21 at 15:30; Stop 06/21/21 at 15:59 Iohexol (Omnipaque 240 Mg/ml) 50 ml STK-MED ONCE .ROUTE ; Start 06/21/21 at 15:32; Stop 06/21/21 at 15:32; Status DC Iohexol (Omnipaque 240 Mg/ml) 50 ml 1X ONCE IJ ; Start 06/21/21 at 15:45; Stop 06/21/21 at 15:46; Status DC Info (CONTRAST GIVEN -- Rx MONITORING) 1 each PRN DAILY PRN MC SEE COMMENTS; Start 06/21/21 at 15:45; Stop 06/23/21 at 15:44 Active Scripts Active Clopidogrel (Clopidogrel Bisulfate) 75 Mg Tablet 75 Mg PO DAILYWBKFT 30 Days Prednisone 20 Mg Tablet 40 Mg PO DAILY 5 Days Aspirin Ec (Aspirin) 81 Mg Tablet.dr 81 Mg PO DAILYWBKFT 30 Days Lisinopril 10 Mg Tablet 10 Mg PO DAILY 30 Days Toprol XL (Metoprolol Succinate) 50 Mg Tab.er.24h 50 Mg PO DAILY 30 Days Amlodipine Besylate 10 Mg Tablet 10 Mg PO DAILY 30 Days Reported Calcitriol 0.25 Mcg Capsule 1 Cap PO DAILY Lipitor (Atorvastatin Calcium) 80 Mg Tablet 80 Mg PO HS Gabapentin 600 Mg Tablet 300 Mg PO TID Pepcid (Famotidine) 40 Mg Tablet 40 Mg PO HS Tresiba (Insulin Degludec) 100 Unit/1 Ml Vial 40 Unit SQ HS Novolog (Insulin Aspart) 100 Unit/1 Ml Cartridge 10 Unit SQ TIDWMEALHC Oxycodone Hcl 5 Mg Capsule 10 Mg PO PRN Q6HRS PRN Oxycodone Hcl 5 Mg Capsule 5 Mg PO PRN Q6HRS PRN Allergies Allergies: Coded Allergies: No Known Drug Allergies (Unverified , 10/16/19) ROS Review of System As per HPI, rest of the ROS is negative Physical Exam Physical Exam General- NAD HEEN OM moist, on RA Neck supple Lungs decreased at bases, Non labored CV S1S2 Abdomen Soft, NT Ext Rt BKA ; toe amputations ; No LE edema No Lewis, No CVA or SP tenderness Neuro AXO x 3, grossly normal Skin No R Vital Signs Vital Signs Date Time Temp Pulse Resp B/P (MAP) Pulse Ox O2 Delivery O2 Flow Rate FiO2 06/21/21 14:45 75 170/77 (108) 100 06/21/21 05:24 15 Room Air 06/21/21 03:27 98.0 98.0 Assessment & Plan ESRD On HD since March 2021 , on MWF schedule @ [facility] stable. Resp status stable Access Tunneled HDC - got dislodged at home , placed today by IR . Pt asymptomatic Hx of NSTEMIs/p cardiac cath 04/05- Acute on chronic systolic and diastolic heart failure. Severe three-vessel coronary artery disease. S/P Angioplasty on 04/06 Acute decompensated resp failure POA - EF of 35% Hx of Bilateral community-acquired pneumonia/Possible viral pneumonia DM2 with hyperglycemia Anemia- Hgb stable Labs Labs Laboratory Tests Test 06/21/21 07:20 06/21/21 14:15 White Blood Count 6.6 x10^3/uL (4.0-11.0) Red Blood Count 3.55 x10^6/uL (4.30-5.70) Hemoglobin 11.6 g/dL (13.0-17.5) Hematocrit 34.8 % (39.0-53.0) Mean Corpuscular Volume 98 fL (79-100) Mean Corpuscular Hemoglobin 33 pg (25-35) Mean Corpuscular Hemoglobin Concent 33 g/dL (31-37) Red Cell Distribution Width 15.3 % (11.5-14.5) Platelet Count 219 x10^3/uL (140-400) Neutrophils (%) (Auto) 73 % (31-73) Lymphocytes (%) (Auto) 16 % (24-48) Monocytes (%) (Auto) 8 % (0-9) Eosinophils (%) (Auto) 3 % (0-3) Basophils (%) (Auto) 1 % (0-3) Neutrophils # (Auto) 4.8 x10^3/uL (1.8-7.7) Lymphocytes # (Auto) 1.0 x10^3/uL (1.0-4.8) Monocytes # (Auto) 0.5 x10^3/uL (0.0-1.1) Eosinophils # (Auto) 0.2 x10^3/uL (0.0-0.7) Basophils # (Auto) 0.1 x10^3/uL (0.0-0.2) Prothrombin Time 13.5 SEC (11.7-14.0) Prothromb Time International Ratio 1.0 (0.8-1.1) Sodium Level 142 mmol/L (136-145) Potassium Level 4.7 mmol/L (3.5-5.1) Chloride Level 109 mmol/L (98-107) Carbon Dioxide Level 22 mmol/L (21-32) Anion Gap 11 (6-14) Blood Urea Nitrogen 27 mg/dL (8-26) Creatinine 5.8 mg/dL (0.7-1.3) Estimated GFR (Cockcroft-Gault) 9.9 BUN/Creatinine Ratio 5 (6-20) Glucose Level 144 mg/dL (70-99) Calcium Level 8.4 mg/dL (8.5-10.1) Phosphorus Level 4.1 mg/dL (2.6-4.7) Magnesium Level 2.1 mg/dL (1.8-2.4) Total Bilirubin 0.5 mg/dL (0.2-1.0) Aspartate Amino Transf (AST/SGOT) 11 U/L (15-37) Alanine Aminotransferase (ALT/SGPT) 17 U/L (16-63) Alkaline Phosphatase 124 U/L (46-116) LL-Aky-N-Type Natriuretic Peptide 64604 pg/mL (0-124) Total Protein 6.2 g/dL (6.4-8.2) Albumin 3.2 g/dL (3.4-5.0) Albumin/Globulin Ratio 1.1 (1.0-1.7) SARS-CoV-2 Antigen (Rapid) Negative (NEGATIVE) Laboratory Tests Test 06/21/21 07:20 06/21/21 14:15 White Blood Count 6.6 x10^3/uL (4.0-11.0) Red Blood Count 3.55 x10^6/uL (4.30-5.70) Hemoglobin 11.6 g/dL (13.0-17.5) Hematocrit 34.8 % (39.0-53.0) Mean Corpuscular Volume 98 fL (79-100) Mean Corpuscular Hemoglobin 33 pg (25-35) Mean Corpuscular Hemoglobin Concent 33 g/dL (31-37) Red Cell Distribution Width 15.3 % (11.5-14.5) Platelet Count 219 x10^3/uL (140-400) Neutrophils (%) (Auto) 73 % (31-73) Lymphocytes (%) (Auto) 16 % (24-48) Monocytes (%) (Auto) 8 % (0-9) Eosinophils (%) (Auto) 3 % (0-3) Basophils (%) (Auto) 1 % (0-3) Neutrophils # (Auto) 4.8 x10^3/uL (1.8-7.7) Lymphocytes # (Auto) 1.0 x10^3/uL (1.0-4.8) Monocytes # (Auto) 0.5 x10^3/uL (0.0-1.1) Eosinophils # (Auto) 0.2 x10^3/uL (0.0-0.7) Basophils # (Auto) 0.1 x10^3/uL (0.0-0.2) Prothrombin Time 13.5 SEC (11.7-14.0) Prothromb Time International Ratio 1.0 (0.8-1.1) Sodium Level 142 mmol/L (136-145) Potassium Level 4.7 mmol/L (3.5-5.1) Chloride Level 109 mmol/L (98-107) Carbon Dioxide Level 22 mmol/L (21-32) Anion Gap 11 (6-14) Blood Urea Nitrogen 27 mg/dL (8-26) Creatinine 5.8 mg/dL (0.7-1.3) Estimated GFR (Cockcroft-Gault) 9.9 BUN/Creatinine Ratio 5 (6-20) Glucose Level 144 mg/dL (70-99) Calcium Level 8.4 mg/dL (8.5-10.1) Phosphorus Level 4.1 mg/dL (2.6-4.7) Magnesium Level 2.1 mg/dL (1.8-2.4) Total Bilirubin 0.5 mg/dL (0.2-1.0) Aspartate Amino Transf (AST/SGOT) 11 U/L (15-37) Alanine Aminotransferase (ALT/SGPT) 17 U/L (16-63) Alkaline Phosphatase 124 U/L (46-116) LN-Ktz-X-Type Natriuretic Peptide 74209 pg/mL (0-124) Total Protein 6.2 g/dL (6.4-8.2) Albumin 3.2 g/dL (3.4-5.0) Albumin/Globulin Ratio 1.1 (1.0-1.7) SARS-CoV-2 Antigen (Rapid) Negative (NEGATIVE) Review All relevant outside records, renal labs, imaging studies, telemetry/EKG's were reviewed. Images Images EXAM: XR CHEST 1V 06/21/2021 5:20 AM CLINICAL INDICATION: Postop dialysis catheter COMPARISON: Chest radiograph 04/01/2021 TECHNIQUE: AP upright view of the chest FINDINGS: A right IJ central venous catheter has been removed. The cardiomediastinal silhouette is normal. Lungs are adequately expanded. Probable mild atelectasis in the lung bases. No pleural effusion or pneumothorax. IMPRESSION: Interval removal of right IJ catheter. No acute abnormality. SEYMOUR MARTINEZ MD Jun 21, 2021 15:55
[2021-06-21 15:57] VITALS: BP 164/61
--- NOTE | 2021-06-21 17:01 | PDOC ---
Provider Note Date of Service: DATE: 06/21/21 TIME: 17:00 Provider Note IR NOTE RIGHT IJ LINE ATTEMPTED, RIJ FOUND TO BE OCCLUDED VIA LIMITED VENOGRAM. RIGH EJ TUNNELED HD CATH PLACED. FOUND TO ASPIRATE AND FLUSH NORMALLY. NO IMMEDIATE COMPLICATION. LINE OK TO USE. Justifications for Admission Other Justification Respiratory failure with hypoxia, NSTEMI, acute on CKD, PUI STUART VALDEZ MD Jun 21, 2021 17:01
[2021-06-21] MEDS ORDERED: ATORVASTATIN CALCIUM 40 MG TABLET. PO SCH (21:00)
[2021-06-21] MEDS ORDERED: INSULIN GLARGINE SYRINGE. SQ SCH (21:00)
[2021-06-21] MEDS ORDERED: FAMOTIDINE 20 MG TABLET. PO SCH (21:00)
[2021-06-21 21:15] VITALS: BP 169/79
--- NOTE | 2021-06-21 21:15 | NUR ---
The patient, LITA HATCH, 66 y/o, M admitted by MONIQUE MOBLEY MD, was given written information regarding hospital policies, unit procedures and contact persons. Patient admitted to room 420. Patient alert and oriented x 4. Patient denies any c/o at this time. Patient oriented to room, call light, bed and POC. Call light in reach and Patient instructed on need to call for assistance. Valuables were checked and Patient states he has wallet with rodriguez and credit cards in it. Patient refused to lock up credit card and rodriguez with security.
[2021-06-21] MEDS ORDERED: CLOPIDOGREL BISULFATE 75 MG TABLET PO ONE (22:30)
[2021-06-21 23:00] VITALS: BP 155/55
[2021-06-22 03:00] VITALS: BP 125/58
[2021-06-22] MEDS: HEPARIN for SUB-Q USE 5,000 UNIT/ML VIAL. SQ SCH ×2 (06:44→14:00)
[2021-06-22 07:39] VITALS: BP 144/58
[2021-06-22] MEDS: INSULIN LISPRO 300 UNITS/3 ML VIAL. SQ SCH ×2 (08:00→12:00)
[2021-06-22] MEDS: GABAPENTIN 300 MG CAPSULE. PO SCH ×2 (08:46→14:00)
[2021-06-22] MEDS: LISINOPRIL 10 MG TABLET PO SCH (08:46)
[2021-06-22] MEDS: METOPROLOL SUCC 24HR ER 50 MG TAB.ER.24H. PO SCH (08:46)
[2021-06-22] MEDS: ASPIRIN ENTERIC COATED 81 MG TABLET.DR. PO SCH (08:47)
[2021-06-22] MEDS: predniSONE 20 MG TABLET PO SCH (08:47)
[2021-06-22] MEDS: CLOPIDOGREL BISULFATE 75 MG TABLET PO SCH (08:47)
[2021-06-22] MEDS ORDERED: CALCITRIOL 0.25 MCG CAPSULE. PO SCH (09:00)
--- NOTE | 2021-06-22 09:26 | PDOC ---
DATE OF SERVICE DATE: 06/22/21 TIME: 09:24 SUBJECTIVE ROS No complaints OBJECTIVE Vital Signs Vital Signs Date Time Temp Pulse Resp B/P (MAP) Pulse Ox O2 Delivery O2 Flow Rate FiO2 06/22/21 08:47 Room Air 06/22/21 08:46 68 144/58 06/22/21 07:39 98.2 18 98 98.2 06/21/21 15:57 2.0 I & 0 Intake and Output 06/22/21 07:00 Intake Total 0 ml Balance 0 ml Intake Oral 0 ml # Voids 1 PHYSICAL EXAM Physical Exam General- NAD HEEN OM moist, on RA Neck supple Lungs decreased at bases, Non labored CV S1S2 Abdomen Soft, NT Ext Rt BKA ; toe amputations ; No LE edema No Lewis, No CVA or SP tenderness Neuro AXO x 3, grossly normal Skin No R DIAGNOSIS/ASSESSMENT Assessment & Plan ESRD On HD since March 2021 , on [facility] schedule @ [facility] . [employer] stable. Resp status stable Access Tunneled HDC - new TUnneled HDC placed on 06/21, Dialysis today (as not done yesterday ),seen during treatment , tolerating well, Discussed treatment plan with Jayleen Lang per primary, Resume dialysis at his OP unit tomorrow Hx of NSTEMIs/p cardiac cath 04/05- Acute on chronic systolic and diastolic heart failure. Severe three-vessel coronary artery disease. S/P Angioplasty on 04/06 Acute decompensated resp failure POA - EF of 35% Hx of Bilateral community-acquired pneumonia/Possible viral pneumonia DM2 with hyperglycemia Anemia- Hgb stable COMMENT/RELEVANT DATA Meds Current Medications Medications (Trade) Dose Ordered Sig/Barrie Start Time Stop Time Status Last Admin Dose Admin Acetaminophen (Tylenol) 650 mg PRN Q6HRS PRN 06/21/21 11:30 Al Hydroxide/Mg Hydroxide (Mylanta Plus Xs) 30 ml PRN Q3HRS PRN 06/21/21 11:30 Amlodipine Besylate (Norvasc) 10 mg 1X ONCE 06/21/21 22:30 06/21/21 22:31 DC 06/21/21 22:40 10 MG Aspirin (Ecotrin) 81 mg DAILYWBKFT 06/21/21 12:00 06/22/21 08:47 81 MG Atorvastatin Calcium (Lipitor) 80 mg QHS 06/21/21 21:00 06/21/21 22:39 80 MG Calcitriol (Rocaltrol) 0.25 mcg DAILY 06/22/21 09:00 06/22/21 08:46 0.25 MCG Calcium Carbonate/ Glycine (Tums) 500 mg PRN Q3HRS PRN 06/21/21 11:30 Cefazolin Sodium/ Dextrose 50 ml @ 100 mls/hr 1X ONCE 06/21/21 15:30 06/21/21 15:59 DC 06/21/21 15:53 100 MLS/HR Clopidogrel Bisulfate (Plavix) 75 mg 1X ONCE 06/21/21 22:30 06/21/21 22:31 DC 06/21/21 22:39 75 MG Famotidine (Pepcid) 40 mg HS 06/21/21 21:00 06/21/21 22:39 40 MG Fentanyl Citrate (Fentanyl 2ml Vial) 50 mcg 1X ONCE 06/21/21 15:30 06/21/21 15:31 DC 06/21/21 15:54 50 MCG Gabapentin (Neurontin) 300 mg TID 06/21/21 14:00 06/22/21 08:46 300 MG Heparin Sodium (Porcine) (Heparin Sodium) 5,000 unit Q8HRS 06/21/21 14:00 06/22/21 06:44 5,000 UNIT Hydralazine HCl (Apresoline Inj) 10 mg PRN Q4HRS PRN 06/21/21 11:30 Info (CONTRAST GIVEN -- Rx MONITORING) 1 each PRN DAILY PRN 06/21/21 15:45 06/23/21 15:44 Insulin Glargine (Lantus Syringe) 40 unit QHS 06/21/21 21:00 06/21/21 22:49 40 UNIT Insulin Human Lispro (HumaLOG) 10 units TIDWMEALHC 06/21/21 12:00 06/21/21 22:50 10 UNITS Iohexol (Omnipaque 240 Mg/ml) 50 ml 1X ONCE 06/21/21 15:45 06/21/21 15:46 DC 06/21/21 15:51 10 ML Lidocaine/ Epinephrine (LIDOCAINE 1%-EPI 1:100,000 Multi-Dose) 20 ml 1X ONCE 06/21/21 15:30 06/21/21 15:31 DC 06/21/21 15:52 12 ML Lisinopril (Prinivil) 10 mg DAILY 06/21/21 12:00 06/22/21 08:46 10 MG Magnesium Hydroxide (Milk Of Magnesia) 2,400 mg PRN Q12HR PRN 06/21/21 11:30 Metoprolol Succinate (Toprol Xl) 50 mg DAILY 06/21/21 12:00 06/22/21 08:46 50 MG Midazolam HCl (Versed) 2 mg 1X ONCE 06/21/21 15:30 06/21/21 15:31 DC 06/21/21 15:53 2 MG Ondansetron HCl (Zofran) 4 mg PRN Q6HRS PRN 06/21/21 11:30 Oxycodone HCl (Roxicodone) 10 mg PRN Q6HRS PRN 06/21/21 11:30 06/22/21 08:47 10 MG Prednisone (Prednisone) 40 mg DAILY 06/21/21 12:00 06/22/21 08:47 40 MG Zolpidem Tartrate (Ambien) 5 mg PRN QHS PRN 06/21/21 11:30 Lab Laboratory Tests Test 06/21/21 14:15 06/21/21 18:19 06/21/21 22:42 06/22/21 08:24 SARS-CoV-2 Antigen (Rapid) Negative (NEGATIVE) Glucose (Fingerstick) 115 mg/dL (70-99) 243 mg/dL (70-99) 114 mg/dL (70-99) Results All relevant outside records, renal labs, imaging studies, telemetry/EKG's were reviewed. Justicifation of Admission Dx: Justifications for Admission: Justification of Admission Dx: Yes SEYMOUR MARTINEZ MD Jun 22, 2021 09:26
--- NOTE | 2021-06-22 10:25 | NUR ---
SW following. Discussed with RN, pt from home alone, room air, renal diet, Rapid COVID-19 negative. Pt does dialysis at [facility] (ph: [phone]), and has [facility]. Possible discharge today after dialysis. SW will continue to follow.
--- NOTE | 2021-06-22 10:31 | PDOC ---
[employer] PROGRESS NOTE Date of Service DOS: DATE: 06/22/21 TIME: 10:30 Chief Complaint Chief Complaint ESRD on HD Monday/Monday/Monday Dislodged HD catheter Missed hemodialysis Normocytic anemia CAD; cath with severe 3VD. s/p PCI/YUMIKO to LAD and RCA on 04/05/2021 Acute on chronic systolic CHF; appears compensated after dialysis Ischemic cardiomyopathy; LVEF 35% ESRD. HD on MWF Acute respiratory failure with CHF exacerbation Hypertension; controlled Hyperlipidemia; statin Diabetes, II PAFIB; maintaining SR Plan: Consultation placed to IR Consultation placed to nephrology Plan to hopefully replace catheter and resume regular HD schedule today HD catheter able to be replaced he may also discharged home today Resume home medications FEN - Renal diet PPX - Heparin FULL CODE Dispo - inpatient for above Patient names a surrogate decision-maker is his daughter (Linda Price) History of Present Illness History of Present Illness Patient 66-year-old male with past medical history ESRD on HD Monday/Monday/Monday, who presents to the ED for evaluation after his right- sided hemodialysis catheter became dislodged while he was doing dishes at home. He reports some initial bleeding that has since ceased. Patient states he had his dialysis catheter for about 2.5 months, with plans to get a fistula within the next month. Chest radiograph with atelectasis. Seen on dialysis. Breathing is improved. IR tunneled the new dialysis catheter on the right in good position. Ready to go home with follow-up on dialysis Monday dialysis schedule with outpatient follow-up for fistula placement. Vitals/I&O Vitals/I&O: Vital Signs Date Time Temp Pulse Resp B/P (MAP) Pulse Ox O2 Delivery O2 Flow Rate FiO2 06/22/21 08:47 Room Air 06/22/21 08:46 68 144/58 06/22/21 07:39 98.2 18 98 98.2 06/21/21 15:57 2.0 I & O0 06/21/21 06/21/21 06/22/21 15:00 23:00 07:00 Intake Total 0 ml Balance 0 ml Labs Labs: Laboratory Tests Test 06/21/21 14:15 06/21/21 18:19 06/21/21 22:42 06/22/21 08:24 SARS-CoV-2 Antigen (Rapid) Negative (NEGATIVE) Glucose (Fingerstick) 115 mg/dL (70-99) 243 mg/dL (70-99) 114 mg/dL (70-99) Assessment and Plan Assessmemt and Plan Problems Medical Problems: (1) Complications, dialysis, catheter, mechanical Status: Acute (2) ESRD (end stage renal disease) on dialysis Status: Acute Comment Review of Relevant I have reviewed the following items antoni (where applicable) has been applied. Medications: Current Medications Medications (Trade) Dose Ordered Sig/Barrie Route PRN Reason Start Time Stop Time Status Last Admin Dose Admin Amlodipine Besylate (Norvasc) 10 mg DAILY PO 06/21/21 12:00 06/22/21 08:46 Aspirin (Ecotrin) 81 mg DAILYWBKFT PO 06/21/21 12:00 06/22/21 08:47 Calcitriol (Rocaltrol) 0.25 mcg DAILY PO 06/22/21 09:00 06/22/21 08:46 Clopidogrel Bisulfate (Plavix) 75 mg DAILYWBKFT PO 06/21/21 12:00 06/22/21 08:47 Lisinopril (Prinivil) 10 mg DAILY PO 06/21/21 12:00 06/22/21 08:46 Metoprolol Succinate (Toprol Xl) 50 mg DAILY PO 06/21/21 12:00 06/22/21 08:46 Prednisone (Prednisone) 40 mg DAILY PO 06/21/21 12:00 06/22/21 08:47 Atorvastatin Calcium (Lipitor) 80 mg QHS PO 06/21/21 21:00 06/21/21 22:39 Famotidine (Pepcid) 40 mg HS PO 06/21/21 21:00 06/21/21 22:39 Gabapentin (Neurontin) 300 mg TID PO 06/21/21 14:00 06/22/21 08:46 Insulin Human Lispro (HumaLOG) 10 units TIDWMEALHC SQ 06/21/21 12:00 06/21/21 22:50 Insulin Glargine (Lantus Syringe) 40 unit QHS SQ 06/21/21 21:00 06/21/21 22:49 Oxycodone HCl (Roxicodone) 10 mg PRN Q6HRS PRN PO MOD-SEVERE PAIN 06/21/21 11:30 06/22/21 08:47 Heparin Sodium (Porcine) (Heparin Sodium) 5,000 unit Q8HRS SQ 06/21/21 14:00 06/22/21 06:44 Midazolam HCl (Versed) 2 mg 1X ONCE IV 06/21/21 15:30 06/21/21 15:31 DC 06/21/21 15:53 Fentanyl Citrate (Fentanyl 2ml Vial) 50 mcg 1X ONCE IV 06/21/21 15:30 06/21/21 15:31 DC 06/21/21 15:54 Lidocaine/ Epinephrine (LIDOCAINE 1%-EPI 1:100,000 Multi-Dose) 20 ml 1X ONCE INJ 06/21/21 15:30 06/21/21 15:31 DC 06/21/21 15:52 Cefazolin Sodium/ Dextrose 50 ml @ 100 mls/hr 1X ONCE IV 06/21/21 15:30 06/21/21 15:59 DC 06/21/21 15:53 Iohexol (Omnipaque 240 Mg/ml) 50 ml 1X ONCE IJ 06/21/21 15:45 06/21/21 15:46 DC 06/21/21 15:51 Amlodipine Besylate (Norvasc) 10 mg 1X ONCE PO 06/21/21 22:30 06/21/21 22:31 DC 06/21/21 22:40 Clopidogrel Bisulfate (Plavix) 75 mg 1X ONCE PO 06/21/21 22:30 06/21/21 22:31 DC 06/21/21 22:39 Justifications for Admission Other Justification Respiratory failure with hypoxia, NSTEMI, acute on CKD, PUI RIFFESanchez,KRISTIN Vega MD Jun 22, 2021 10:31
[2021-06-22 11:00] VITALS: BP 127/76
[2021-06-22] MEDS ORDERED: DIALYSIS PATIENT. MC PRN (12:15)
[2021-06-22 12:20] VITALS: BP 69/40
--- NOTE | 2021-06-22 12:41 | RAD ---
Procedure: 1. Right internal jugular venogram 2. Right external jugular Tunneled hemodialysis catheter placement with ultrasound and fluoroscopic g uidance Clinical Indication: Inadvertent removal of previously placed right internal jugular tunneled hemodi alysis catheter Sedation: Conscious sedation was administered for 38 minutes. The patient was monitored by a [facility] ed independent observer throughout the time of sedation. Please refer to the medical record for exac t doses of medications utilized to achieve moderate sedation. Fluoro Time: 6.2 minutes 28 Fuentes centimeter squared Sterility: All elements of maximal sterile barrier technique including the use of a cap, mask, steril e gown, sterile gloves, large sterile sheet, appropriate hand hygiene, and 2% chlorhexidine for cutan eous antisepsis (or acceptable alternative antiseptic per current guidelines) were followed for this procedure. Consent: The procedure was explained in its entirety to the patient or the patients designated repres entative by a member of the treatment team, including a discussion of the risks, benefits and commonl y accepted alternatives to the procedure, as well as the expected consequences of no therapy whatsoev er. Discussion of the risks included, but was not limited to, those that are most frequent and thos e that are rare but possibly severe or life-threatening, as well as the possibility of unforeseen com plications. Technique and Findings: Following informed consent, the patient was prepped and draped in the usual s terile fashion. Ultrasound interrogation of the right neck revealed patency and compressibility of t he right internal jugular vein, in the neck. A 21-gauge micropuncture was then used to gain access t o this vein under ultrasound guidance. A guidewire would not advance centrally. A venogram was perfor med demonstrating occlusion of the vein at the level of the clavicle. Attempts to traverse the occlus ion were unsuccessful. A prominent external jugular vein was identified with ultrasound and accessed using identical technique. A guidewire was advanced into the IVC. The skin over the right anterior c hest wall was copiously anesthetized with 1% Lidocaine plus Epinephrine and a small dermatotomy was m colten. A 23 cm tip to cuff palindrome tunneled hemodialysis catheter was then tunneled subcutaneously towards the neck dermatotomy and deployed through a large caliber peel-away sheath under fluoroscopic guidance such that the distal tip resided in the mid right atrium. The catheter was found to flush a nd aspirate normally the catheter was secured in place. No immediate complications were identified. IMPRESSION:: 1. 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 Placement of a right external jugular vein tunnel hemodialysis catheter Electronically signed by: Bradley Conti MD (06/22/2021 12:38 PM) [id number]
[2021-06-22] MEDS ORDERED: GABA600T7 PO (13:33)
--- NOTE | 2021-06-22 13:41 | PDOC3 ---
Discharge Summary Visit Information Date of Admission: Jun 21, 2021 Date of Discharge: Jun 22, 2021 Admitting Diagnosis: Dialysis catheter dislodged Final Diagnosis Problems Medical Problems: (1) Complications, dialysis, catheter, mechanical Status: Acute (2) ESRD (end stage renal disease) on dialysis Status: Acute Brief Hospital Course Allergies Allergies Coded Allergies Type Severity Reaction Last Updated Verified No Known Drug Allergies 10/16/19 No Vital Signs Vital Signs Date Time Temp Pulse Resp B/P (MAP) Pulse Ox O2 Delivery O2 Flow Rate FiO2 06/22/21 12:20 98.6 80 17 69/40 (50) 98 Room Air 98.6 06/21/21 15:57 2.0 Lab Results Laboratory Tests Test 06/21/21 07:20 06/21/21 14:15 06/21/21 18:19 06/21/21 22:42 White Blood Count 6.6 x10^3/uL (4.0-11.0) Red Blood Count 3.55 x10^6/uL (4.30-5.70) Hemoglobin 11.6 g/dL (13.0-17.5) Hematocrit 34.8 % (39.0-53.0) Mean Corpuscular Volume 98 fL (79-100) Mean Corpuscular Hemoglobin 33 pg (25-35) Mean Corpuscular Hemoglobin Concent 33 g/dL (31-37) Red Cell Distribution Width 15.3 % (11.5-14.5) Platelet Count 219 x10^3/uL (140-400) Neutrophils (%) (Auto) 73 % (31-73) Lymphocytes (%) (Auto) 16 % (24-48) Monocytes (%) (Auto) 8 % (0-9) Eosinophils (%) (Auto) 3 % (0-3) Basophils (%) (Auto) 1 % (0-3) Neutrophils # (Auto) 4.8 x10^3/uL (1.8-7.7) Lymphocytes # (Auto) 1.0 x10^3/uL (1.0-4.8) Monocytes # (Auto) 0.5 x10^3/uL (0.0-1.1) Eosinophils # (Auto) 0.2 x10^3/uL (0.0-0.7) Basophils # (Auto) 0.1 x10^3/uL (0.0-0.2) Prothrombin Time 13.5 SEC (11.7-14.0) Prothromb Time International Ratio 1.0 (0.8-1.1) Sodium Level 142 mmol/L (136-145) Potassium Level 4.7 mmol/L (3.5-5.1) Chloride Level 109 mmol/L (98-107) Carbon Dioxide Level 22 mmol/L (21-32) Anion Gap 11 (6-14) Blood Urea Nitrogen 27 mg/dL (8-26) Creatinine 5.8 mg/dL (0.7-1.3) Estimated GFR (Cockcroft-Gault) 9.9 BUN/Creatinine Ratio 5 (6-20) Glucose Level 144 mg/dL (70-99) Calcium Level 8.4 mg/dL (8.5-10.1) Phosphorus Level 4.1 mg/dL (2.6-4.7) Magnesium Level 2.1 mg/dL (1.8-2.4) Total Bilirubin 0.5 mg/dL (0.2-1.0) Aspartate Amino Transf (AST/SGOT) 11 U/L (15-37) Alanine Aminotransferase (ALT/SGPT) 17 U/L (16-63) Alkaline Phosphatase 124 U/L (46-116) EU-Mlx-N-Type Natriuretic Peptide 90842 pg/mL (0-124) Total Protein 6.2 g/dL (6.4-8.2) Albumin 3.2 g/dL (3.4-5.0) Albumin/Globulin Ratio 1.1 (1.0-1.7) SARS-CoV-2 Antigen (Rapid) Negative (NEGATIVE) Glucose (Fingerstick) 115 mg/dL (70-99) 243 mg/dL (70-99) Test 06/22/21 08:24 06/22/21 10:20 Glucose (Fingerstick) 114 mg/dL (70-99) Hepatitis B Surface Antigen Nonreactive (Nonreactive) Hepatitis B Surface Antibody Nonreactive Laboratory Tests Test 06/21/21 14:15 06/21/21 18:19 06/21/21 22:42 06/22/21 08:24 SARS-CoV-2 Antigen (Rapid) Negative (NEGATIVE) Glucose (Fingerstick) 115 mg/dL (70-99) 243 mg/dL (70-99) 114 mg/dL (70-99) Test 06/22/21 10:20 Hepatitis B Surface Antigen Nonreactive (Nonreactive) Hepatitis B Surface Antibody Nonreactive Brief Hospital Course Mr Ritchie 66-year-old male with past medical history ESRD on HD M /Monday/Monday, who presents to the ED for evaluation after his right- sided hemodialysis catheter became dislodged while he was doing dishes at home. He reports some initial bleeding that has since ceased. Patient states he had his dialysis catheter for about 2.5 months, with plans to get a fistula within the next month. Chest radiograph with atelectasis. Consults: IR and nephrology Seen on dialysis. Breathing is improved. IR tunneled the new dialysis catheter on the right in good position. Ready to go home with follow-up on dialysis Monday dialysis schedule with outpatient follow-up for fistula placement. He had his first COVID-19 vaccine while at [facility] rehab 3 weeks ago is due for his second Pfizer dose today has been encouraged to do this outpatient upon discharge. Problem list: ESRD on HD Monday/Monday/Monday Dislodged HD catheter Missed hemodialysis Normocytic anemia CAD; cath with severe 3VD. s/p PCI/YUIMKO to LAD and RCA on 04/05/2021 Acute on chronic systolic CHF; appears compensated after dialysis Ischemic cardiomyopathy; LVEF 35% ESRD. HD on MWF Acute respiratory failure with CHF exacerbation Hypertension; controlled Hyperlipidemia; statin Diabetes, II PAFIB; maintaining SR Patient names a surrogate decision-maker is his daughter (Linda Price) Greater than 30 minutes spent on d/c home with self care Discharge Information Condition at Discharge: Improved Follow Up: Weeks (1) Disposition/Orders: D/C to Home Scheduled Amlodipine Besylate (Amlodipine Besylate) 10 Mg Tablet, 10 MG PO DAILY for blood pressure for 30 Days, #30 Prescribed by: ELVIS TSE MD on 04/07/211228 Last Action: Continued on 06/21/211120 by MONIQUE MOBLEY MD Aspirin (Aspirin Ec) 81 Mg Tablet.dr, 81 MG PO DAILYWBKFT for heart disease for 30 Days, #30 Prescribed by: ELVIS TSE MD on 04/07/211228 Last Action: Continued on 06/21/211120 by MONIQUE MOBLEY MD Atorvastatin Calcium (Lipitor) 80 Mg Tablet, 80 MG PO HS for FOR CHOLESTEROL, #30 Ref 0 (Reported) Entered as Reported by: DIVYA DAVIES on 04/02/21912 Last Action: Converted on 06/21/211120 by MONIQUE MOBLEY MD Calcitriol (Calcitriol) 0.25 Mcg Capsule, 1 CAP PO DAILY for hypocalcemia, #30 Ref 5 (Reported) Entered as Reported by: DIVYA DAVIES on 04/02/21912 Last Action: Continued on 06/21/211120 by MONIQUE MOBLEY MD Clopidogrel Bisulfate (Clopidogrel) 75 Mg Tablet, 75 MG PO DAILYWBKFT for CAD for 30 Days, #30 Ref 2 Prescribed by: NATA REBOLLAR APRN on 04/07/21 1323 Last Action: Continued on 06/21/211120 by MONIQEU MOBLEY MD Gabapentin (Gabapentin) 600 Mg Tablet, 300 MG PO QHS for NEUROGENIC PAIN for 30 Days, #15 Prescribed by: KRISTIN MATTHEW MD on 06/22/21 1333 Insulin Aspart (Novolog) 100 Unit/1 Ml Cartridge, 10 UNIT SQ TIDWMEALHC for diabetes, (Reported) Entered as Reported by: DIVYA DAVIES on 04/02/21912 Last Action: Converted on 06/21/211120 by MONIQUE MOBLEY MD Insulin Degludec (Tresiba) 100 Unit/1 Ml Vial, 40 UNIT SQ HS for diabetes, (Reported) Entered as Reported by: DIVYA DAVIES on 04/02/21912 Last Action: Converted on 06/21/211120 by MONIQUE MOBLEY MD Lisinopril (Lisinopril) 10 Mg Tablet, 10 MG PO DAILY for blood pressure for 30 Days, #30 Prescribed by: ELVIS TSE MD on 04/07/211228 Last Action: Continued on 06/21/211120 by MONIQUE MOBLEY MD Metoprolol Succinate (Toprol XL) 50 Mg Tab.er.24h, 50 MG PO DAILY for blood pressure for 30 Days, #30 Prescribed by: ELVIS TSE MD on 04/07/211228 Last Action: Continued on 06/21/211120 by MONIQUE MOBLEY MD Scheduled PRN Oxycodone Hcl (Oxycodone Hcl) 5 Mg Capsule, 5 MG PO PRN Q6HRS PRN for PAIN, Ref 0 (Reported) Entered as Reported by: DIVYA DAVIES on 04/02/21912 Last Action: Converted on 06/21/211120 by MONIQUE MOBLEY MD Oxycodone Hcl (Oxycodone Hcl) 5 Mg Capsule, 10 MG PO PRN Q6HRS PRN for PAIN, Ref 0 (Reported) Entered as Reported by: DIVYA DAVIES on 04/02/21912 Last Action: Converted on 06/21/211120 by MONIQUE MOBLEY MD Discontinued Medications Famotidine (Pepcid) 40 Mg Tablet, 40 MG PO HS for gerd, (Reported) Entered as Reported by: DIVYA DAVIES on 04/02/21912 Last Action: Converted on 06/21/211120 by MONIQUE MOBLEY MD Prednisone (Prednisone) 20 Mg Tablet, 40 MG PO DAILY for copd exacerbation for 5 Days, #10 Prescribed by: ELVIS TSE MD on 04/07/21 1229 Last Action: Continued on 06/21/211120 by MONIQUE MOBLEY MD Justicifation of Admission Dx: Justifications for Admission: Justification of Admission Dx: Yes KRISTIN MATTHEW MD Jun 22, 2021 13:41
--- NOTE | 2021-06-22 15:17 | SNU/HH DC ---
DISCHARGE WITH HOME HEALTH DISCHARGE INFORMATION: Discharge Date: Jun 22, 2021 Final Diagnosis: Problems Medical Problems: (1) Complications, dialysis, catheter, mechanical Status: Acute (2) ESRD (end stage renal disease) on dialysis Status: Acute Condition on Discharge: Stable CODE STATUS: Code Status: Full HOME HEALTH: Face to Face: I certify this patient is under my care and that I, or a nurse practitioner or physician's psychiatric technician assistant working with me, had a face to face encounter that meets the physician face to face encounter requirements with this patient on 06/22/21. Medical Complications: CHF, DJD Detention For: Diabetic Care, Medication Management RN For Eval/Treatment: Yes Physical Therapy For: Evalulation/Treatment Occupational Therapy For: Evaluation/Treatment Pt Meets Homebound Status: Extreme weakness w/ amb. POST DISCHARGE ORDERS: Activity Instructions for Disc: Activity as tolerated Weight Bearing Status after Di: Full weight bearing DIET AFTER DISCHARGE: Renal CHECKS AFTER DISCHARGE: Checks after discharge: Check blood press - daily, Check blood sugar, ac/hs, Weigh Yourself Daily Comment: external jugular FOLLOW-UP: Follow up with: Dialysis Follow Up With: Primary care with in 5 days TREATMENT/EQUIPMENT ORDERS: Adaptive Equipment Issued: None CERTIFICATION STATEMENT: Certification Statement: Certification Statement: Based on the above finding, I certify that this patient is confined to the home and needs intermittent correction care, physical therapy and/or speech therapy, or continues to need occupational therapy.~ This patient is under my care, and I have initiated the establishment of the plan of care.~ This patient will be followed by myself or a community physician who will periodically review the plan of care. Home Meds Active Scripts Gabapentin (GABAPENTIN) 600 Mg Tablet, 300 MG PO QHS for NEUROGENIC PAIN for 30 Days, #15 TAB Prov:KRISTIN MATTHEW MD 06/22/21 Clopidogrel Bisulfate (CLOPIDOGREL) 75 Mg Tablet, 75 MG PO DAILYWBKFT for CAD for 30 Days, #30 TAB 2 Refills Prov:NATA REBOLLAR APRN 04/07/21 Aspirin (ASPIRIN EC) 81 Mg Tablet., 81 MG PO DAILYWBKFT for heart disease for 30 Days, #30 TAB.SR Prov:ELVIS TSE MD 04/07/21 Lisinopril (LISINOPRIL) 10 Mg Tablet, 10 MG PO DAILY for blood pressure for 30 Days, #30 TAB Prov:ELVIS TSE MD 04/07/21 Metoprolol Succinate (Toprol XL) 50 Mg Tab.er.24h, 50 MG PO DAILY for blood pressure for 30 Days, #30 TAB.SR Prov:ELVIS TSE MD 04/07/21 Amlodipine Besylate (AMLODIPINE BESYLATE) 10 Mg Tablet, 10 MG PO DAILY for blood pressure for 30 Days, #30 TAB Prov:ELVIS TSE MD 04/07/21 Reported Medications Calcitriol (CALCITRIOL) 0.25 Mcg Capsule, 1 CAP PO DAILY for hypocalcemia, #30 CAP 5 Refills 04/02/21 Atorvastatin Calcium (LIPITOR) 80 Mg Tablet, 80 MG PO HS for FOR CHOLESTEROL, #30 TAB 0 Refills 04/02/21 Insulin Degludec (Tresiba) 100 Unit/1 Ml Vial, 40 UNIT SQ HS for diabetes, EACH 04/02/21 Insulin Aspart (NOVOLOG) 100 Unit/1 Ml Cartridge, 10 UNIT SQ TIDWMEALHC for diabetes, EACH 04/02/21 Oxycodone Hcl (OXYCODONE HCL) 5 Mg Capsule, 10 MG PO PRN Q6HRS PRN for PAIN, TAB 0 Refills 04/02/21 Oxycodone Hcl (OXYCODONE HCL) 5 Mg Capsule, 5 MG PO PRN Q6HRS PRN for PAIN, TAB 0 Refills 04/02/21 Discontinued Reported Medications Famotidine (PEPCID) 40 Mg Tablet, 40 MG PO HS for gerd, TAB 04/02/21 Discontinued Scripts Prednisone (PREDNISONE) 20 Mg Tablet, 40 MG PO DAILY for copd exacerbation for 5 Days, #10 TAB Prov:ELVIS TSE MD 04/07/21 KRISTIN MATTHEW MD Jun 22, 2021 15:17
== END 2021-06-22 14:50 | disposition home health service (06) | DRG 673 ==
LOC: ER 21:40 → ED HOLD 06-21 08:40 → OBSVTOIN 06-21 11:21 → 4 NORTH 06-21 21:20
PROVIDERS: ADMIT Family Medicine; ATTEND Family Medicine
PROC: 0JH63XZ Insertion of Tunneled Vascular Access Device into Chest Subcutaneous Tissue and Fascia, Percutaneous Approach (ICD-10-PCS; principal; 2021-06-21)
PROC: 02H633Z Insertion of Infusion Device into Right Atrium, Percutaneous Approach (ICD-10-PCS; 2021-06-21)
PROC: B5181ZA Fluoroscopy of Superior Vena Cava using Low Osmolar Contrast, Guidance (ICD-10-PCS; 2021-06-21)
PROC: B548ZZA Ultrasonography of Superior Vena Cava, Guidance (ICD-10-PCS; 2021-06-21)
PROC: B5141ZA Fluoroscopy of Left Jugular Veins using Low Osmolar Contrast, Guidance (ICD-10-PCS; 2021-06-21)
PROC: 5A1D70Z Performance of Urinary Filtration, Intermittent, Less than 6 Hours Per Day (ICD-10-PCS; 2021-06-22)
DX: T82.42XA Displacement of vascular dialysis catheter, initial encounter (principal); N18.6 End stage renal disease; J96.00 Acute respiratory failure, unspecified whether with hypoxia or hypercapnia; I50.43 Acute on chronic combined systolic (congestive) and diastolic (congestive) heart failure; I13.2 Hypertensive heart and chronic kidney disease with heart failure and with stage 5 chronic kidney disease, or end stage renal disease; D64.9 Anemia, unspecified; E11.22 Type 2 diabetes mellitus with diabetic chronic kidney disease; E11.51 Type 2 diabetes mellitus with diabetic peripheral angiopathy without gangrene; E78.5 Hyperlipidemia, unspecified; F17.210 Nicotine dependence, cigarettes, uncomplicated; I25.10 Atherosclerotic heart disease of native coronary artery without angina pectoris; I25.5 Ischemic cardiomyopathy; I48.0 Paroxysmal atrial fibrillation; G89.29 Other chronic pain; Y83.8 Other surgical procedures as the cause of abnormal reaction of the patient, or of later complication, without mention of misadventure at the time of the procedure; Z20.822 Contact with and (suspected) exposure to COVID-19; E11.65 Type 2 diabetes mellitus with hyperglycemia; Z79.02 Long term (current) use of antithrombotics/antiplatelets; Z82.49 Family history of ischemic heart disease and other diseases of the circulatory system; Z85.51 Personal history of malignant neoplasm of bladder; Z95.820 Peripheral vascular angioplasty status with implants and grafts; Z98.61 Coronary angioplasty status; Z99.2 Dependence on renal dialysis; I25.2 Old myocardial infarction; Y92.89 Other specified places as the place of occurrence of the external cause
CPT/HCPCS: 36415; 36558; 71045; 75820; 76937; 77001; 80053; 82962; 83735; 83880; 84100; 85025; 85610; 86706; 87340; 87426; 93005; 99152; C1750; C1892; G0378; G0379; J0690; J1644; J1815; J2250; J3010; J3490; J7512; Q9966; 99285-25